=== PATIENT | female | born 1960 | race African-American/Black ===

== ENCOUNTER → 2023-12-25 | Day surgery (SDC) | payer OTHER ==
[~2023-12-25] MED LIST: ABILIFY5 MG PO; ASPIRIN81 MG PO; FLONASE ALLERG9.9 ML INH; HYZAAR 50-12.51 EACH PO; LACTATED RINGER'S 0 ML ONE; LATANOPROST2.5 ML OP; LEVOCETIRIZINE D5 MG; LIDOCAINE HCL 2% LOCAL INJ 5 ML SDV VIAL INJ ONE; LINZESS145 MCG PO; METOPROLOL SUCC50 MG PO; NEURONTIN400 MG PO; PROPOFOL IV EMULSION 10 MG/ML 20 ML VIAL ONE; SIMVASTATIN10 MG PO; VENLAFAXINE H37.5 M2 PO; VITAMIN C1000 MG PO; ZOLPIDEM TARTRAT5 MG PO
[2023-12-25] MEDS: LACTATED RINGER'S 1,000 ML ONE (10:38)
[2023-12-25 12:32] VITALS: TEMP 98.3
[2023-12-25 13:00] VITALS: BP 155/98; PULSE 76; RESP 16; O2SAT 98
== END | disposition home or self-care (01) ==
LOC: OR 09:48
PROVIDERS: ATTEND Internal Medicine Gastroenterology
DX: Z09 Encounter for follow-up examination after completed treatment for conditions other than malignant neoplasm (principal); D12.2 Benign neoplasm of ascending colon; K64.0 First degree hemorrhoids; Z71.3 Dietary counseling and surveillance; Z78.9 Other specified health status; I10 Essential (primary) hypertension; E78.5 Hyperlipidemia, unspecified; Z01.810 Encounter for preprocedural cardiovascular examination; Z79.82 Long term (current) use of aspirin; Z79.899 Other long term (current) drug therapy; Z68.32 Body mass index [BMI] 32.0-32.9, adult; Z85.3 Personal history of malignant neoplasm of breast; Z92.21 Personal history of antineoplastic chemotherapy; Z92.3 Personal history of irradiation; Z80.0 Family history of malignant neoplasm of digestive organs
CPT/HCPCS: 45385; 88305; 93005; J7121; 45378; J2001